=== PATIENT | female | born 1990 | race Caucasian/White ===

== ENCOUNTER → 2019-01-31 | Outpatient (CLI) | payer OTHER ==
[2019-01-31 16:42] VITALS: BP 144/80; PULSE 108; RESP 16; TEMP 97.4
--- NOTE | 2019-02-01 15:11 | P.MSEPDOC ---
Presenting Problems - Arrival Data Date of Arrival on Unit: 01/31/19 Time of Arrival on Unit: 16:38 Mode of Transport: Ambulatory Medical History - Information : 1 Para: 0 Term: 0 : 0 Abortions: Spontaneous or Elective: 0 Number of Living Children: 0 - Gestational Age Gestational Age by NORY (wks/days): 34 Weeks and 3 Days Review of Systems - Review of Systems Constitutional: No problems Breast: No problems ENT: No problems Cardiovascular: No problems Respiratory: No problems Gastrointestinal: No problems Genitourinary: No problems Musculoskeletal: No problems Neurological: No problems Skin: No problems Vital Signs - Temperature Temperature: 97.4 F Temperature Source: Temporal Artery Scan - Pulse Right Brachial Pulse Rate: 108 Pulse Assessment Method: Automatic Cuff - Respirations Respiratory Rate: 16 Oxygen Delivery Method: Room Air - Blood Pressure Right Arm Blood Pressure: 144/80 Blood Pressure Mean: 101 Blood Pressure Source: Automatic Cuff Medical Screen Scoring (Pre) - Cervical Exam Dilation: Exam Deferred Effacement: Exam Deferred - Uterine Contractions Frequency: N/A Duration: N/A Intensity: N/A - Maternal Vital Signs Maternal Temperature: N/A Maternal Blood Pressure: N/A Maternal Respirations: N/A - Maternal Trauma Maternal Trauma: N/A - Assessment - Baby A Baseline FHR: 140 Heart Rate - NICHD Category: Category I (Normal) = 0 NST: Reactive Position: N/A Station: N/A - Total Score - Baby A Total Score - Baby A: 0 - Total Score - Baby B Total Score - Baby B: 0 - Total Score - Baby C Total Score - Baby C: 0 - Level of Risk - Baby A Level of Risk - Baby A: Low (0-5) - Level of Risk - Baby B Level of Risk - Baby B: Low (0-5) - Level of Risk - Baby C Level of Risk - Baby C: Low (0-5) Physician Notification (Post) - Physician Notified Physician Notified Date: 01/31/19 Physician Notified Time: 16:58 Physician/Practitioner Notified:: alisha Spoke With: alisha New Order Received: Yes - Notification Comment Comment: reported pt visit with concern with decreased fm, reported active moverment with a reactive nst. pt may be discharged home Disposition - Disposition OB Disposition: Discharge to home Discharge Date: 01/31/19 Discharge Time: 17:00 I agree with the RN Medical Screening Exam: Yes Risk & Benefit of care provided described in d/c instruction: Yes Diagnosis: DECREASED MOVEMENTS, THIRD TRIMESTER, FETUS 1
== END ==
LOC: FBPOP 15:38
PROVIDERS: ATTEND Obstetrics & Gynecology Obstetrics
DX: O36.8131 Decreased fetal movements, third trimester, fetus 1 (principal); Z3A.34 34 weeks gestation of pregnancy
CPT/HCPCS: 59025; G0463; 99213

== ENCOUNTER 2019-03-04 13:07 | Inpatient (IN) | payer OTHER ==
[2019-03-04 14:50] LABS: Anisocytosis Slight; Basophils % (A) 0 %; Eosinophils # (A) 0.1 k/uL (0-0.7); Eosinophils % (A) 1 %; HCT 34.7 % (34.0-46.0); HGB 11.8 gm/dL (11.4-16.0); Lymphocytes # (A) 1.4 k/uL (1.0-4.8); Lymphocytes % (A) 15 %; MCH 28.7 pg (25.0-35.0); MCHC 34.1 g/dL (31.0-37.0); MCV 84.1 fL (80.0-100.0); Mean Platelet Volume 8.2; Monocytes # (A) 0.6 k/uL (0-1.0); Monocytes % (A) 6 %; Neutrophils # (A) 7.6 k/uL (1.3-7.7); Neutrophils % (A) 78 %; Platelet Count 283 k/uL (150-450); RBC 4.13 m/uL (3.80-5.40); RDW 17.2 % (11.5-15.5); WBC 9.8 k/uL (3.8-10.6)
[2019-03-04 14:59] LABS: ALT 13 U/L (9-52); AST 18 U/L (14-36); African American GFR (CKD) >90 (>60 ml/min/1.73 sqM); Blood Urea Nitrogen 11 mg/dL (7-17); LDH 349 U/L (313-618); Uric Acid 6.3 mg/dL (3.7-7.4)
[2019-03-04 15:21] LABS: Appearance,Urine Cloudy (Clear); Bilirubin,Urine Negative (Negative); Blood,Urine Trace (Negative); Color,Urine Yellow; Glucose,Urine (UA) Negative (Negative); Ketones,Urine Negative (Negative); Leukocyte Esterase,Urine Negative (Negative); Mucus,Urine Moderate /hpf; Nitrite,Urine Negative (Negative); PH, Urine 6.5 (5.0-8.0); Protein,Urine 3+ (Negative); RBC,Urine 1 /hpf (0-5); Specific Gravity,Urine 1.025 (1.001-1.035); Squamous Epithelial Cell,Urine 12 /hpf (0-4); Urobilinogen,Urine <2.0 mg/dL (<2.0); WBC,Urine 5 /hpf (0-5)
[2019-03-04] MEDS: LACTATED RINGERS 1,000 ML IV SCH (16:25)
[2019-03-04 16:36] VITALS: BMI 53.7
[2019-03-04] MEDS ORDERED: DINOPROSTONE 10 MG INSERT.ER VAGINAL ONE (19:56)
[2019-03-04] MEDS ORDERED: LABETALOL 5 MG/ML VIAL MDV IVP PRN ×2 (19:59)
[2019-03-04] MEDS ORDERED: hydrALAZINE HCL 20 MG/ML 1 ML VIAL IVP PRN ×2 (19:59)
--- NOTE | 2019-03-04 20:07 | P.HPOB ---
History of Present Illness H&P Date: 03/04/19 Chief Complaint: 39-0/7 weeks, preeclampsia, unfavorable cervix The patient is a 28-year-old 1 para 0 admitted at 39-0/7 weeks as established by early ultrasound. She is admitted through triage for decreased movement at which time she had a reactive NST was found with mildly elevated blood pressures. Laboratory workup for preeclampsia was essentially negative though she did demonstrate 3+ protein in her urine with an elevated uric acid. She is admitted for 23 hour observation and 24-hour urine collection. Over the course of the afternoon and evening, she has had increasing [place] blood pressures that are currently requiring antihypertensive medication. Given that she is 39 weeks with now a diagnosis of preeclampsia, she will be admitted for delivery. Her cervix is unfavorable for induction at this time and she will have Cervidil cervical ripening begun shortly with the intention of Pitocin induction to follow-up. The risks and complications have been discussed. I also discussed the potential risk for delivery as well as a primary option given her remoteness from delivery which she has declined. Her has been essentially uncomplicated to this point though she does have a circumvallate placenta and underwent routine reassuring testing on a weekly basis beginning at 32 weeks. She additionally has had a large for gestational age fetus on growth ultrasounds of the most recent ultrasound is not available in the record. Group B strep status is positive. Obstetrical history: 1 para 0 with current statistics listed in history of present illness. EDC of 03/11/2019 was established by early ultrasound. Laboratory workup demonstrates a blood type of O+ with a negative antibody screen. Rubella status is nonimmune. The remainder of the laboratory workup was within normal limits. Early Glucola as well as second trimester Glucola were within normal limits. Group B strep status is positive. Gynecologic history: Is unremarkable with no history of any infections to include STDs. Review of Systems Review of systems is confined to history of present illness. Past Medical History Additional Past Medical History / Comment(s): mild heart murmur History of Any Multi-Drug Resistant Organisms: None Reported Past Surgical History: No Surgical Hx Reported Past Anesthesia/Blood Transfusion Reactions: No Reported Reaction Past Psychological History: Anxiety, Depression Smoking Status: Former smoker Past Alcohol Use History: None Reported Past Drug Use History: None Reported - Past Family History Mother Family Medical History: Diabetes Mellitus, Respiratory Disorder Medications and Allergies Home Medications Medication Instructions Recorded Confirmed Type Pnv,Calcium 72/Iron/Folic Acid 1 tab PO DAILY 01/31/19 03/04/19 History [ Plus Tablet] Ranitidine HCl [Zantac] 1 tab PO DAILY 03/04/19 03/04/19 History Allergies Allergy/AdvReac Type Severity Reaction Status Date / Time No Known Allergies Allergy Verified 03/04/19 13:42 Exam Vital Signs Temp Pulse Resp BP 03/04/19 14:04 97.4 F L 111 H 16 143/93 Intake and Output 03/04/19 03/04/19 03/04/19 06:59 14:59 22:59 Other: Weight 155.582 kg In general, this is a morbidly obese white female in no acute distress. Her heart has a regular rhythm and rate without murmur. Her lungs are clear to auscultation bilaterally in all peterson. Her abdomen is obese, nondistended, gravid, has normal active bowel sounds, is soft, nontender, and without any palpable masses aside from uterine fundus. Her extremities are without any cyanosis, clubbing, or edema and are nontender to palpation bilaterally. Digital cervical examination performed earlier by the nursing staff demonstrated her cervix to be approximately once the ureter dilated, thick, with the vertex in presentation at a high station. Results Result Diagrams: 03/04/19 14:31 03/04/19 14:31 Abnormal Lab Results - Last 24 Hours (Table) 03/04/19 03/04/19 03/04/19 Range/Units 14:31 14:58 14:58 RDW 17.2 H (11.5-15.5) % Urine Appearance Cloudy H (Clear) Urine Protein 3+ H (Negative) Urine Blood Trace H (Negative) Ur Squamous Epith Cells 12 H (0-4) /hpf Urine Mucus Moderate H (None) /hpf U Random Total Protein >600 H (<12) mg/dL Assessment and Plan (1) Term Current Visit: Yes Status: Acute Code(s): Z34.90 - ENCNTR FOR SUPRVSN OF NORMAL , UNSP, UNSP TRIMESTER SNOMED Code(s): 06184780 (2) Preeclampsia Current Visit: Yes Status: Acute Code(s): O14.90 - UNSPECIFIED PRE-ECLAMP SOLOMON, UNSPECIFIED TRIMESTER SNOMED Code(s): 171215435 (3) Group B streptococcal infection in Current Visit: Yes Status: Acute Code(s): O98.819 - OTH MATERNAL INFEC/PAR ASTC DISEASES COMP PREG, UNSP TRI; B95.1 - STREPTOCOCCUS, GROUP B, CAUSING DISEASES CLASSD ELSWHR SNOMED Code(s): 347302190 Plan: The patient has had her status change from 20 three-hour observation to admission as an inpatient for cervical ripening and delivery. I discussed alternatives with her and she has opted to proceed with cervical ripening with the intention of attempting normal vaginal delivery. Risks and complications have been discussed at length. Pitocin will be added in the morning should it be necessary. She will have antibiotic prophylaxis for group B strep started at the onset of labor. We will monitor blood pressures very closely as she is currently requiring IV hydralazine for to significantly elevated pressures recently at the time discussion regarding delivery. She will continue to have close maternal and surveillance and expectant management will otherwise be practiced. She is a good candidate for either IV or epidural analgesia, whichever she may choose. I have also discussed the potential use of magnesium sulfate but will hold that in reserve for the time being.
[2019-03-04 21:43] LABS: INR 0.8 (<1.2); Partial Thromboplastin Time 24.3 sec (22.0-30.0); Prothrombin Time 9.3 sec (9.0-12.0)
[2019-03-05] MEDS ORDERED: ACETAMINOPHEN TAB 325 MG TAB PO PRN ×2 (00:55→16:56)
[2019-03-05] MEDS ORDERED: LIDOCAINE 0.5% (PF) 5 MG/ML (50 ML SDV) SQ PRN (05:33)
[2019-03-05] MEDS ORDERED: TERBUTALINE 1 MG/ML VIAL SQ PRN (05:33)
[2019-03-05] MEDS ORDERED: OXYTOCIN 10 UNIT/ML 1 ML VIAL IM PRN (05:33)
[2019-03-05] MEDS ORDERED: METHYLERGONOVINE 0.2 MG/ML 1 ML AMP IM PRN (05:33)
[2019-03-05] MEDS ORDERED: PENICILLIN G POTASSIUM 5,000,000 UNIT in DEXTROSE 5% IN WATER 100 ML IVPB STA ×2 (05:33)
[2019-03-05] MEDS ORDERED: CARBOPROST TROMETHAMINE 250 MCG/ML 1 ML AMP IM PRN (05:33)
[2019-03-05] MEDS: LACTATED RINGERS 1,000 ML IV SCH ×5 (06:23→21:03)
[2019-03-05] MEDS: OXYTOCIN 30 UNITS/500 ML NS 30 UNIT in SALINE 1 500ML.BAG IV SCH (06:27)
[2019-03-05] MEDS: PENICILLIN G POTASSIUM 2,500,000 UNIT in DEXTROSE 5% IN WATER 100 ML IVPB SCH ×6 (10:11→18:35)
[2019-03-05] MEDS ORDERED: ROPIVACAINE 5MG/ML 20ML VIAL ONE (11:31)
[2019-03-05] MEDS ORDERED: SODIUM CHLORIDE 0.9% 100 ML BAG ONE (11:31)
[2019-03-05] MEDS ORDERED: fentaNYL (PF) 50 MCG/ML 5 ML AMP ONE (11:31)
[2019-03-05] MEDS ORDERED: CITRIC ACID-SODIUM CITRATE 15 ML CUP PO ONE (15:31)
[2019-03-05] MEDS ORDERED: MORPHINE SULFATE (PF) 0.3 MG/0.3 ML SYR ONE (16:02)
[2019-03-05] MEDS ORDERED: ONDANSETRON 4 MG/2 ML VIAL ONE (16:02)
[2019-03-05] MEDS ORDERED: MIDAZOLAM 2 MG/2 ML VIAL ONE (16:02)
[2019-03-05] MEDS ORDERED: LABETALOL 5 MG/ML VIAL MDV ONE (16:02)
[2019-03-05] MEDS ORDERED: OXYTOCIN 10 UNIT/ML 1 ML VIAL ONE (16:02)
[2019-03-05] MEDS ORDERED: KETOROLAC 30 MG/ML 1 ML VIAL ONE (16:02)
[2019-03-05] MEDS ORDERED: ceFAZolin 3 GM in SODIUM CHLORIDE 0.9% 100 ML IVPB ONE (16:30)
[2019-03-05] MEDS ORDERED: LANOLIN CREAM 5 GM TUBE TOPICAL PRN (16:56)
[2019-03-05] MEDS ORDERED: KETOROLAC 30 MG/ML 1 ML VIAL IVP PRN ×2 (16:56→22:14)
[2019-03-05] MEDS ORDERED: diphenhydrAMINE 25 MG CAP PO PRN (16:56)
[2019-03-05] MEDS ORDERED: METOCLOPRAMIDE 5 MG/ML 2 ML VIAL IVP PRN (16:56)
[2019-03-05] MEDS ORDERED: ONDANSETRON 4 MG/2 ML VIAL IVP PRN (16:56)
[2019-03-05] MEDS ORDERED: HYDROcodone/APAP 5-325MG 1 EACH TAB PO PRN (16:56)
[2019-03-05] MEDS ORDERED: HYDROcodone/APAP 7.5-325MG 1 EACH TAB PO PRN (16:56)
[2019-03-05] MEDS ORDERED: diphenhydrAMINE 50 MG CAP PO PRN (16:56)
[2019-03-05] MEDS ORDERED: NALOXONE 0.4 MG/ML 1 ML VIAL IV PRN ×2 (16:56→22:14)
[2019-03-05] MEDS ORDERED: SIMETHICONE 80 MG CHEWABLE PO PRN (16:56)
[2019-03-05] MEDS ORDERED: diphenhydrAMINE 50 MG/ML 1 ML VIAL IVP PRN ×2 (16:56)
[2019-03-05] MEDS ORDERED: ZOLPIDEM 5 MG TAB PO PRN (16:56)
[2019-03-05] MEDS ORDERED: OXYTOCIN 20 UNITS/1000 ML NS 1,000 ML IV SCH (17:00)
--- NOTE | 2019-03-05 17:11 | P.OP ---
Date of Procedure: 03/05/19 Preoperative Diagnosis: #1. 39 and one sevenths weeks, preeclampsia #2. Morbid obesity #3. Suspected macrosomia #4. Arrest of dilation and descent Postoperative Diagnosis: Same Procedure(s) Performed: #1. Primary low-transverse section Anesthesia: epidural Surgeon: Alexandro Lennon Clam Grower #1: Temo Reeder Estimated Blood Loss (ml): 600 IV fluids (ml): 1,000 Urine output (ml): 200 Pathology: other (Placenta) Condition: stable Disposition: floor Operative Findings: Preoperatively, the patient was diagnosed with severe preeclampsia based upon significant elevated blood pressures requiring IV antihypertensives as well as significant proteinuria. She was given the option of proceeding with primary low-transverse section as she was significantly remote from delivery ve rsus proceeding with induction of labor. She chose the latter and, given her unfavorable cervix, had a Cervidil placed last night. Her blood pressures remained stable through the night and she was found with the head further in the pelvis and the cervix more favorable at 2, 50, and -2 station. Artificial rupture of members was carried out. She then had Pitocin augmentation ongoing all day and made progress from 2 to perhaps 3 cm dilated with no descent of the station. Blood pressures remained adequately stable throughout. Epidural had been placed for analgesia. After several hours at 3 cm of dilation, she was counseled and taken the operating room where she underwent primary low- transverse section and was delivered of a viable 8 lbs. 3 oz. baby girl with Apgars of 9 at 1 minute and 9 at 5 minutes in the occiput anterior position. There was a loose nuchal cord 1 which was reduced prior to delivery. The placenta was delivered manually and intact with a grossly normal three- vessel cord. The uterus, tubes, and ovaries were entirely normal to inspection. The maternal wall thickness was between 15 and 20 cm between skin and fascia. Description of Procedure: The patient was prepped and draped in usual fashion after epidural anesthesia was bolused by the anesthesiologist. A Pfannenstiel incision was made and extended into the abdominal cavity without difficulty though the maternal wall depth was noted to be at least 15 or close to 20 cm. The bladder peritoneum was noted to be significantly distal to the intended site of incision and was left intact. A 2 cm incision was made in the transverse plane of the lower uterine segment to enter the uterus at which time the incision was extended in both directions bluntly. The head was brought up and through the incision where the nose and mouth were thoroughly suctioned. A nuchal cord 1 was noted and was reduced prior to delivery of the infant. The infant was delivered onto the field where the cord was doubly clamped, cut, and the passed for resuscitative measures with weight and Apgars as noted above. A segment of cord was doubly clamped, cut, and set aside should cord gases become necessary. The placenta was delivered manually and intact as noted above. The uterus was exteriorized and the interior cavity of the uterus swept of any remaining placental or membranous fragments. The margins of the incision were grasped with Wood clamps and the incision was closed in 2 layers. The first layer was a running locking stitch of 0 chromic catgut proceeding from margin to margin followed by an imbricating stitch of 0 chromic catgut proceeding from margin to margin. Hemostasis appeared to be excellent. The posterior cul-de-sac was suctioned with a guard and the uterus replaced within the abdominal cavity. The gutters were swept of any remaining blood, fluid, or clot. Examination of the incision demonstrated excellent hemostasis. The par ietal peritoneum was loosely reapproximated in the layer of muscles and fascia examined. Any small points of bleeding were made hemostatic with the Bovie. After ensuring adequate hemostasis, the fascia was closed with 2 running stitches of 0 Vicryl proceeding from lateral margins to the midpoint. The subcutaneous tissues were irrigated, made hemostatic with the Bovie, and reapproximated with a running stitch of 30 plain catgut. The skin was reapproximated with regular surgical sophie. All sponge, instrument, and needle counts were correct. Estimated blood loss for the case was approximate 600 mL. There were no complications. The patient tolerated the procedure well and proceeded to the recovery room in stable condition. Both mother and infant are resting comfortably in recovery.
[2019-03-05] MEDS ORDERED: ACETAMINOPHEN IV (For NPO) 1,000 MG in EMPTY BAG 1 BAG IVPB ONE (17:30)
[2019-03-05] MEDS ORDERED: LABETALOL 100 MG TAB PO STA (18:09)
[2019-03-05] MEDS ORDERED: HYDROmorphone 0.5 MG/0.5 ML SYRINGE IVP PRN (22:14)
[2019-03-05] MEDS ORDERED: HYDROmorphone 1 MG/ML 1 ML SYRINGE IVP PRN (22:16)
[2019-03-05] MEDS: LABETALOL 200 MG TAB PO SCH (22:17)
[2019-03-05] MEDS: SENNOSIDES-DOCUSATE SODIUM 1 EACH TAB PO SCH (22:23)
[2019-03-06] MEDS: SENNOSIDES-DOCUSATE SODIUM 1 EACH TAB PO SCH (08:08)
[2019-03-06 08:10] LABS: Basophils # (A) 0.1 k/uL (0-0.2); Basophils % (A) 0 %; Eosinophils # (A) 0.1 k/uL (0-0.7); Eosinophils % (A) 0 %; HCT 33.3 % (34.0-46.0); HGB 11.1 gm/dL (11.4-16.0); Lymphocytes # (A) 1.6 k/uL (1.0-4.8); Lymphocytes % (A) 11 %; MCH 28.1 pg (25.0-35.0); MCHC 33.5 g/dL (31.0-37.0); MCV 83.8 fL (80.0-100.0); Mean Platelet Volume 8.2; Monocytes # (A) 0.8 k/uL (0-1.0); Monocytes % (A) 6 %; Neutrophils % (A) 81 %; Platelet Count 255 k/uL (150-450); RBC 3.97 m/uL (3.80-5.40); RDW 15.3 % (11.5-15.5); WBC 13.6 k/uL (3.8-10.6)
[2019-03-06] MEDS: LABETALOL 200 MG TAB PO SCH ×2 (08:44→20:51)
[2019-03-06 09:02] LABS: ALT 20 U/L (9-52); AST 23 U/L (14-36)
--- NOTE | 2019-03-06 10:42 | P.PNOBGPC ---
Subjective - Subjective Interval history: The patient reports some nausea this morning which has resolved. She is up and ambulatory. Patient reports: Reports appetite normal, Reports voiding normally, Reports pain well controlled, Reports ambulating normally : doing well Objective - Vital Signs Latest vital signs: Vital Signs Temp Pulse Resp BP Pulse Ox 03/06/19 08:00 98.2 F 93 16 140/88 03/06/19 03:52 98.2 F 85 16 136/77 03/05/19 23:18 102 H 20 150/81 96 03/05/19 23:14 96 03/05/19 22:20 98.1 F 104 H 17 150/86 95 03/05/19 22:14 95 03/05/19 20:00 98.1 F 85 18 144/88 03/05/19 19:00 99.1 F 114 H 16 158/87 96 03/05/19 18:30 98.3 F 100 16 156/83 96 03/05/19 18:00 98.5 F 112 H 16 168/94 97 03/05/19 17:45 98.9 F 111 H 16 168/94 98 03/05/19 17:30 99.7 F H 118 H 16 157/65 98 03/05/19 17:15 99.6 F 111 H 16 159/87 99 03/05/19 17:00 98.8 F 118 H 16 171/89 99 Intake and Output 03/05/19 03/06/19 03/06/19 22:59 06:59 14:59 Output Total 300 300 1 Balance -300 -300 -1 Output: Urine 300 300 1 Uretheral (Albert) 300 Other: # Voids 200 - Exam Extremities: Present: normal Abdomen: Present: normal appearance, soft. Absent: distention, tenderness Incision: Present: normal, dry (Dressing was somewhat saturated at removal.), intact Uterus: Present: normal, firm - Labs Labs: Abnormal Lab Results - Last 24 Hours (Table) 03/06/19 Range/Units 07:52 WBC 13.6 H (3.8-10.6) k/uL Hgb 11.1 L (11.4-16.0) gm/dL Hct 33.3 L (34.0-46.0) % Neutrophils # 11.0 H (1.3-7.7) k/uL Assessment and Plan (1) Term Current Visit: Yes Status: Acute Code(s): Z34.90 - ENCNTR FOR SUPRVSN OF NORMAL , UNSP, UNSP TRIMESTER SNOMED Code(s): 33767943 (2) Preeclampsia Current Visit: Yes Status: Acute Code(s): O14.90 - UNSPECIFIED PRE- ECLAMPSIA, UNSPECIFIED TRIMESTER SNOMED Code(s): 924604499 (3) Group B streptococcal infection in Current Visit: Yes Status: Acute Code(s): O98.819 - OTH MATERNAL INFEC/PARASTC DISEASES COMP PREG, UNSP TRI; B95.1 - STREPTOCOCCUS, GROUP B, CAUSING DISEASES CLASSD ELSR SNOMED Code(s): 223507985 (4) Status post section Current Visit: Yes Status: Acute Code(s): Z98.891 - HISTORY OF UTERINE SCAR FROM PREVIOUS SURGERY SNOMED Code(s): 966635719 Plan: Vitals appear to be stable on labetalol 200 mg twice daily. I have encouraged the patient to ambulating the hallways routinely. Possible discharge tomorrow pending no complications or issues with blood pressure control.
--- NOTE | 2019-03-06 10:50 | P.MSEPDOC ---
Presenting Problems - Arrival Data Date of Arrival on Unit: 03/04/19 Time of Arrival on Unit: 15:53 Mode of Transport: Ambulatory - Complaint OB-Reason for Admission/Chief Complaint: Decreased Movement, PIH Medical History - Information : 1 Para: 0 Term: 0 : 0 Abortions: Spontaneous or Elective: 0 Number of Living Children: 0 - Gestational Age Gestational Age by NORY (wks/days): 39 Weeks and 1 Days - History Complications: GBS+ Review of Systems - Review of Systems Constitutional: No problems Breast: No problems ENT: No problems Cardiovascular: No problems Respiratory: No problems Gastrointestinal: No problems Genitourinary: No problems Musculoskeletal: No problems Neurological: No problems Skin: No problems Vital Signs - Temperature Temperature: 98.2 F Temperature Source: Oral - Pulse Apical Pulse Rate: 93 Pulse Assessment Method: Automatic Cuff - Respirations Respiratory Rate: 16 Oxygen Delivery Method: Room Air - Blood Pressure Right Arm Blood Pressure: 140/88 Blood Pressure Mean: 105 Blood Pressure Source: Automatic Cuff Medical Screen Scoring (Pre) - Cervical Exam Dilation: 1-3 cm = 1 Membranes: Intact - Uterine Contractions Frequency: N/A - Maternal Vital Signs Maternal Temperature: N/A Maternal Blood Pressure: Diastolic > 89 = 1 Signs of Preeclampsia: N/A Maternal Respirations: N/A - Maternal Trauma Maternal Trauma: N/A - Assessment - Baby A Baseline FHR: 135 Heart Rate - NICHD Category: Category I (Normal) = 0 NST: Reactive Position: N/A Station: N/A - Total Score - Baby A Total Score - Baby A: 2 - Total Score - Baby B Total Score - Baby B: 2 - Total Score - Baby C Total Score - Baby C: 2 - Level of Risk - Baby A Level of Risk - Baby A: Low (0-5) - Level of Risk - Baby B Level of Risk - Baby B: Low (0-5) - Level of Risk - Baby C Level of Risk - Baby C: Low (0-5) Physician Notification (Pre) - Physician Notified Physician Notified Date: 03/04/19 Physician Notified Time: 14:04 Physician/Practitioner Notifed:: Citlalli New Order Received: Yes (TALIA navin) Physician Notification (Post) - Physician Notified Physician Notified Date: 03/04/19 Physician Notified Time: 15:32 Physician/Practitioner Notified:: Citlalli New Order Received: Yes (admit for obv) - Notification Comment Comment: +3 protein in urine Disposition - Disposition OB Disposition: Admit, Observe I agree with the RN Medical Screening Exam: Yes Risk & Benefit of care provided described in d/c instruction: Yes Diagnosis: RELATED CONDITIONS, UNSPECIFIED, THIRD TRIMESTER
[2019-03-06] MEDS ORDERED: MEASLES-MUMPS-RUBELLA VACC/PF 12,500 UNIT/0.5 ML VIAL SQ ONE (14:02)
[2019-03-06] MEDS: LACTATED RINGERS 1,000 ML IV SCH ×3 (14:03→14:04)
[2019-03-06] MEDS: OXYTOCIN 30 UNITS/500 ML NS 30 UNIT in SALINE 1 500ML.BAG IV SCH (14:05)
--- NOTE | 2019-03-06 14:59 | P.PN ---
Progress Note - Text Progress Note Date: 03/06/19 28-year-old female status post section with epidural administered Duramorph 4 milligrams. Patient doing well no complaints of nausea or vomiting, no motor sensory deficits. Mild pruritus appreciated. Otherwise patient doing well.
[2019-03-06] MEDS: IBUPROFEN 600 MG TAB PO PRN (20:48)
[2019-03-07] MEDS: SENNOSIDES-DOCUSATE SODIUM 1 EACH TAB PO SCH ×3 (00:24→19:42)
[2019-03-07] MEDS: IBUPROFEN 600 MG TAB PO PRN ×2 (08:53→18:13)
[2019-03-07] MEDS: LABETALOL 200 MG TAB PO SCH ×2 (08:54→20:53)
--- NOTE | 2019-03-07 09:01 | P.DS ---
Providers Date of admission: 03/05/19 05:33 Expected date of discharge: 03/07/19 Attending physician: Autumn Renteria Primary care physician: Stated None - Discharge Diagnosis(es) (1) 39 weeks gestation of Current Visit: Yes Status: Acute (2) Group B streptococcal infection in Current Visit: Yes Status: Acute (3) Large for gestational age fetus Current Visit: Yes Status: Acute (4) Obesity Current Visit: Yes Status: Acute (5) Preeclampsia Current Visit: Yes Status: Acute (6) Rubella non-immune status, antepartum Current Visit: Yes Status: Acute (7) Status post section Current Visit: Yes Status: Acute Hospital Course: This is a 28yo at 39 weeks that presented to labor and delivery with c/o decreased movement, FHTs were noted to be category 1 but her BP were noted to be elevated. she was admitted for a 2 hour urine and BP continue to elevate therefore she was admitted for induction secondary to preeclampsia. she was given labetalol and apressoline for BP management. she made little cervical change overnight and throughout the next day. gien her Bp and arrest of dialtion and descent with suspected LGA fetus the decision for LTCS was ultimately made . she underwent primary LTCS without difficulty, for further details please see the operative report. Post operatively she was startedon labetalol and she has done well. on this pod 2 she is feeling well. BP 130-140/80's. she denies concerns. Pain is well controlled. Lochia is noted to be minimal. she is breast feeding. Patient Condition at Discharge: Good Plan - Discharge Summary New Discharge Prescriptions: No Action Pnv,Calcium 72/Iron/Folic Acid [ Plus Tablet] 1 tab PO DAILY Ranitidine HCl [Zantac] 1 tab PO DAILY Discharge Medication List Pnv,Calcium 72/Iron/Folic Acid [ Plus Tablet] 1 tab PO DAILY 01/31/19 [History] Ranitidine HCl [Zantac] 1 tab PO DAILY 03/04/19 [History] Follow up Appointment(s)/Referral(s): Autumn Renteria DO [Doctor of Osteopathic Medicine] - 1 Week Patient Instructions/Handouts: (DC), (GEN) Discharge Disposition: HOME SELF-CARE
[2019-03-08 00:07] VITALS: RESP 16
[2019-03-08] MEDS: IBUPROFEN 600 MG TAB PO PRN (04:27)
[2019-03-08] MEDS: SENNOSIDES-DOCUSATE SODIUM 1 EACH TAB PO SCH (08:15)
[2019-03-08] MEDS: LABETALOL 200 MG TAB PO SCH (08:15)
[2019-03-08 08:31] VITALS: BP 136/76; PULSE 94; TEMP 98
--- NOTE | 2019-03-08 09:56 | P.PNOBGPC ---
Subjective - Subjective Principal diagnosis: POD 3 LTCS arrest of dilation and descent Interval history: Patient is doing well postoperatively. She is ambulating and voiding without difficulty. She is tolerating a regular diet without nausea or vomiting. She states her pain is well-controlled with oral ibuprofen. She is awaiting a bilirubin level on her . She states lochia is minimal. Patient reports: Reports appetite normal, Reports voiding normally, Reports pain well controlled, Reports ambulating normally : doing well Objective - Vital Signs Latest vital signs: Vital Signs Temp Pulse Resp BP BP Pulse Ox 03/08/19 08:00 98.0 F 94 16 136/76 98 03/08/19 00:00 98.2 F 97 16 125/63 03/07/19 16:00 98.2 F 105 H 18 145/84 97 03/07/19 12:00 138/81 Intake and Output 03/07/19 03/08/19 03/08/19 22:59 06:59 14:59 Other: # Voids 1 - Exam Extremities: Present: normal Abdomen: Present: normal appearance, soft Incision: Present: normal, dry, intact (Some erythema is noted surrounding the incision will continue to watch it is not warm to touch and there is no discharge.) Uterus: Present: normal, firm Assessment and Plan (1) 39 weeks gestation of Current Visit: Yes Status: Acute Code(s): Z3A.39 - 39 WEEKS GESTATION OF SNOMED Code(s): 89089653 (2) Group B streptococcal infection in Current Visit: Yes Status: Acute Code(s): O98.819 - OTH MATERNAL INFEC/PARASTC DISEASES COMP PREG, UNSP TRI; B95.1 - STREPTOCOCCUS, GROUP B, CAUSING DISEASES CLASSD ELSWHR SNOMED Code(s): 100131149 (3) Large for gestational age fetus Current Visit: Yes Status: Acute Code(s): UXR4162 - SNOMED Code(s): 658612288 (4) Obesity Current Visit: Yes Status: Acute Code(s): E66.9 - OBESITY, UNSPECIFIED SNOMED Code(s): 816260636 (5) Preeclampsia Current Visit: Yes Status: Acute Code(s): O14.90 - UNSPECIFIED PRE- ECLAMPSIA, UNSPECIFIED TRIMESTER SNOMED Code(s): 560848462 (6) Rubella non-immune status, antepartum Current Visit: Yes Status: Acute Code(s): O99.89 - OTH DISEASES AND CONDITIONS COMPL PREG/CHLDBRTH; Z28.3 - UNDERIMMUNIZATION STATUS SNOMED Code(s): 557150351 (7) Status post section Current Visit: Yes Status: Acute Code(s): Z98.891 - HISTORY OF UTERINE SCAR FROM PREVIOUS SURGERY SNOMED Code(s): 424412393 Plan: We'll continue routine postoperative care and anticipate discharge home tomorrow.
== END 2019-03-08 13:37 | disposition home or self-care (01) | DRG 788 ==
LOC: FBPOP 13:07 → 4FBP 15:33 → OBSVTOIN 03-05 05:33
PROVIDERS: ADMIT Obstetrics & Gynecology; ATTEND Obstetrics & Gynecology Obstetrics
PROC: 3E0P7VZ Introduction of Hormone into Female Reproductive, Via Natural or Artificial Opening (ICD-10-PCS; 2019-03-04)
PROC: 10907ZC Drainage of Amniotic Fluid, Therapeutic from Products of Conception, Via Natural or Artificial Opening (ICD-10-PCS; 2019-03-05)
PROC: 00HU33Z Insertion of Infusion Device into Spinal Canal, Percutaneous Approach (ICD-10-PCS; 2019-03-05)
PROC: 3E0R3BZ Introduction of Anesthetic Agent into Spinal Canal, Percutaneous Approach (ICD-10-PCS; 2019-03-05)
PROC: 10D00Z1 Extraction of Products of Conception, Low, Open Approach (ICD-10-PCS; principal; 2019-03-05 16:00)
PROC: 3E0134Z Introduction of Serum, Toxoid and Vaccine into Subcutaneous Tissue, Percutaneous Approach (ICD-10-PCS; 2019-03-06)
DX: O14.14 Severe pre-eclampsia complicating childbirth (principal); E66.01 Morbid (severe) obesity due to excess calories; O62.1 Secondary uterine inertia; O36.8130 Decreased fetal movements, third trimester, not applicable or unspecified; O69.81X0 Labor and delivery complicated by cord around neck, without compression, not applicable or unspecified; O36.63X0 Maternal care for excessive fetal growth, third trimester, not applicable or unspecified; O99.214 Obesity complicating childbirth; O99.824 Streptococcus B carrier state complicating childbirth; Z37.0 Single live birth; L29.9 Pruritus, unspecified; Z23 Encounter for immunization; Z3A.39 39 weeks gestation of pregnancy; Z79.899 Other long term (current) drug therapy; Z87.891 Personal history of nicotine dependence; Z86.59 Personal history of other mental and behavioral disorders; Z86.79 Personal history of other diseases of the circulatory system; Z83.3 Family history of diabetes mellitus; Z83.6 Family history of other diseases of the respiratory system
CPT/HCPCS: 59025; 81001; 82565; 82570; 83615; 84156; 84450; 84460; 84520; 84550; 85025; 85610; 85730; 86850; 86900; 86901; 88307; 90707; 99213

== ENCOUNTER → 2024-05-06 | Outpatient (CLI) | payer OTHER ==
--- NOTE | 2024-05-08 20:12 | US ---
EXAMINATION TYPE: US liver DATE OF EXAM: 05/06/2024 COMPARISON: NONE CLINICAL INDICATION: Female, 33 years old with history of R74.01 ELEVATED ALT; elevated labs, h/o fat ty liver TECHNIQUE: Grayscale and color Doppler imaging of the right upper quadrant was performed. FINDINGS: EXAM MEASUREMENTS: Liver Length: 23.4 cm Gallbladder Wall: 0.2 cm CBD: 0.6 cm Right Kidney: 11.2 x 3.7 x 4.4 cm MULTI LINE CLAIMS ADJUSTER NOTES: large habitus Pancreas: wnl Liver: enlarged and difficult to penetrate Gallbladder: wnl Evidence for sonographic Land's sign: no CBD: wnl Right Kidney: wnl IMPRESSION: 1. Hepatomegaly with mild to moderate fatty rotation. [facility], , 05/08/2024 8:10 PM
== END | disposition home or self-care (01) ==
LOC: RADUSWWP 08:53
PROVIDERS: ATTEND Family Medicine
DX: K76.0 Fatty (change of) liver, not elsewhere classified (principal); R16.0 Hepatomegaly, not elsewhere classified; R74.01 Elevation of levels of liver transaminase levels
CPT/HCPCS: 76705